=== PATIENT | male | born 1975 | race Caucasian/White ===

== ENCOUNTER → 2017-07-03 | Outpatient (CLI) | payer OTHER | LOC: M.MRI 13:07 | DX: G80.9 Cerebral palsy, unspecified (principal); R41.3 Other amnesia; Q04.8 Other specified congenital malformations of brain ==

== ENCOUNTER → 2018-01-13 | Outpatient (CLI) | payer OTHER | LOC: M.RAD 11:53 | DX: S22.42XD Multiple fractures of ribs, left side, subsequent encounter for fracture with routine healing (principal); X58.XXXD Exposure to other specified factors, subsequent encounter; Z83.3 Family history of diabetes mellitus ==

== ENCOUNTER → 2020-08-01 | Outpatient (CLI) | payer MEDICARE | LOC: M.RAD 10:57 | PROVIDERS: ATTEND Internal Medicine | DX: M89.8X5 Other specified disorders of bone, thigh (principal) ==

== ENCOUNTER → 2021-03-28 | Outpatient (CLI) | payer MEDICARE | LOC: M.RAD 09:52 | PROVIDERS: ATTEND Internal Medicine | DX: R07.81 Pleurodynia (principal) ==